=== PATIENT | male | born 1985 | race Caucasian/White ===

== ENCOUNTER 2017-10-10 13:02 | Emergency (ER) | payer OTHER ==
[2017-10-10 13:09] VITALS: BMI 23.6
[2017-10-10 13:30] VITALS: RESP 18; TEMP 96; O2SAT 99
[2017-10-10] MEDS ORDERED: Dextrose 50% SYRINGE Inj (50 ml) ONE (13:36)
[2017-10-10 13:51] LABS: BASO # 0.01 K/mm3 (0.0-2.0); BASO % 0.1 % (0.0-3.0); EOS # 0.1 (0.0-0.7); EOS % 1.2 % (1.5-5.0); GRAN # 6.65 (1.4-6.5); GRAN % 65.5 % (50.0-68.0); HEMOGLOBIN 12.1 g/dL (14.0-18.0); LYMPH # 2.5 (1.2-3.4); LYMPH % 24.6 % (22.0-35.0); MEAN CELL VOLUME 86.6 fl (80.0-105.0); MEAN CORPUSCULAR HGB CONC 32.4 g/dl (31.0-37.0); MEAN PLATELET VOLUME 10.5 fl (7.0-11.0); MONO # 0.9 (0.1-0.6); MONO % 8.6 % (1.0-6.0); RBC 4.32 10^6/uL (3.5-6.1); RED CELL DISTRIBUTION WIDTH 15.1 % (11.5-14.5); WHITE BLOOD COUNT 10.1 10^3/ul (4.5-11.0)
--- NOTE | 2017-10-10 15:26 | ED PDOC ---
Arrival/HPI - General Chief Complaint: Altered Mental Status Time Seen by Provider: 10/10/17 13:32 Historian: Patient - History of Present Illness Narrative History of Present Illness (Text): 10/10/17 15:18 32yo male with PMHx of IDDM who was [facility] [place]. Patient states he was seen at [facility] for his right foot wound and on his way back home he couldn't remember what happened. Notes taking his Insulin today. States he didn't eat all day because he went to his appointment. He reports similar symptom with hypoglycemic episodes. His FS was 25 in triage and he was given an amp of dextrose. He became more AAO x3 and calm in ED. He denies any somatic complaint in ED. Past Medical History - Provider Review Nursing Documentation Reviewed: Yes - Cardiac Hx Cardiac Disorders: No - Pulmonary Hx Respiratory Disorders: No - Neurological Hx Neurological Disorder: No - HEENT Hx HEENT Disorder: No - Renal Hx Renal Disorder: No - Endocrine/Metabolic Hx Endocrine Disorders: Yes Other/Comment: diabetic - Hematological/Oncological Hx Blood Disorders: No - Integumentary Hx Dermatological Disorder: No - Musculoskeletal/Rheumatological Hx Musculoskeletal Disorders: No - Gastrointestinal Hx Gastrointestinal Disorders: No - Genitourinary/Gynecological Hx Genitourinary Disorders: No - Psychiatric Hx Psychophysiologic Disorder: No Hx Substance Use: No Family/Social History - Physician Review Nursing Documentation Reviewed: Yes Family/Social History: Unknown Family HX Smoking Status: Never Smoked Hx Alcohol Use: No Hx Substance Use: No Allergies/Home Meds Allergies/Adverse Reactions: Allergies No Known Allergies Allergy (Verified 10/10/17 13:09) Home Medications: Home Meds Medication Instructions Recorded Confirmed Unobtainable 10/10/17 10/10/17 Review of Systems - Physician Review All systems were reviewed & negative as marked: Yes - Review of Systems Constitutional: Normal Eyes: Normal ENT: Normal Respiratory: Normal Cardiovascular: Normal Gastrointestinal: Normal Genitourinary Male: Normal Musculoskeletal: Normal Skin: Normal Neurological: Normal Endocrine: Other (Hypoglycemia) Hemo/Lymphatic: Normal Psychiatric: Normal Physical Exam Vital Signs Reviewed: Yes Vital Signs Temp Pulse Resp BP Pulse Ox 10/10/17 16:12 95 H 18 144/86 99 10/10/17 13:02 96 F L 103 H 18 162/96 H 99 Temperature: Afebrile Blood Pressure: Normal Pulse: Regular Respiratory Rate: Normal Appearance: Positive for: Well-Appearing, Non-Toxic, Comfortable Pain Distress: None Mental Status: Positive for: Alert and Oriented X 3 Finger Stick Blood Glucose: 64 - Systems Exam Head: Present: Atraumatic, Normocephalic Pupils: Present: PERRL Extroacular Muscles: Present: EOMI Conjunctiva: Present: Normal Mouth: Present: Moist Mucous Membranes Neck: Present: Normal Range of Motion Respiratory/Chest: Present: Clear to Auscultation, Good Air Exchange. No: Respiratory Distress, Accessory Muscle Use Cardiovascular: Present: Regular Rate and Rhythm, Normal S1, S2. No: Murmurs Abdomen: Present: Normal Bowel Sounds. No: Tenderness, Distention, Peritoneal Signs Back: Present: Normal Inspection Upper Extremity: Present: Normal Inspection. No: Cyanosis, Edema Lower Extremity: Present: Normal Inspection, Other (Dressing and ortho shoe noted on right foot). No: Edema Neurological: Present: GCS=15, CN II-XII Intact, Speech Normal Skin: Present: Warm, Dry, Normal Color. No: Rashes Psychiatric: Present: Alert, Oriented x 3, Normal Insight, Normal Concentration Medical Decision Making ED Course and Treatment: 10/10/17 19:39 PT became AAO x3 in ED with Dextrose and food. His FS was 102 and he requested to go home. He was ambulatory and have no focal neurological deficit. - Lab Interpretations Lab Results: 10/10/17 13:05 10/10/17 14:49 Lab Results 10/10/17 14:49: Random Glucose 32 L* 10/10/17 13:05: WBC 10.1, RBC 4.32, Hgb 12.1 L, Hct 37.4 L, MCV 86.6, MCH 28.0, MCHC 32.4, RDW 15.1 H, Plt Count 359, MPV 10.5, Gran % 65.5, Lymph % (Auto) 24.6 , [place] % (Auto) 8.6 H, Eos % (Auto) 1.2 L, Baso % (Auto) 0.1, Gran # 6.65 H, Lymph # (Auto) 2.5, [place] # (Auto) 0.9 H, Eos # (Auto) 0.1, Baso # (Auto) 0.01 Disposition/Present on Arrival - Present on Arrival Any Indicators Present on Arrival: No History of DVT/PE: No History of Uncontrolled Diabetes: No Urinary Catheter: No History of Decub. Ulcer: No History Surgical Site Infection Following: None - Disposition Have Diagnosis and Disposition been Completed?: Yes Diagnosis: Hypoglycemia Disposition: HOME/ ROUTINE Disposition Time: 16:15 Patient Plan: Discharge Condition: STABLE Discharge Instructions (ExitCare): Low Blood Sugar, Adult (DC) Additional Instructions: Follow up with your doctor Return to ED for any new or worsening symptoms Referrals: Jennifer Gambino MD [Primary Care Provider] - Follow up with primary Forms: [employer] ([employer])
[2017-10-10 16:13] VITALS: BP 144/86; PULSE 95
== END 2017-10-10 16:20 | disposition home or self-care (01) ==
LOC: MERGE 13:02 → ED 13:02
DX: E11.649 Type 2 diabetes mellitus with hypoglycemia without coma (principal)